=== PATIENT | female | born 2000 | race Caucasian/White ===

== ENCOUNTER 2018-01-27 12:33 | Emergency (ER) | payer BC ==
[~2018-01-27] VITALS: Ht 157.5 cm; Wt 61.2 kg
--- NOTE | 2018-01-27 12:57 | NUR ---
Patient discharged to home in stable conditon. Written and verbal after care instructions given. Patient verbalizes understanding of instructions.
== END 2018-01-27 12:58 | disposition home or self-care (01) ==
LOC: ER 12:35
DX: Z76.0 Encounter for issue of repeat prescription (principal); J45.909 Unspecified asthma, uncomplicated; Z88.1 Allergy status to other antibiotic agents
CPT/HCPCS: A4663